=== PATIENT | male | born 1965 ===

== ENCOUNTER 2018-04-20 12:43 | Emergency (ER) | payer OTHER ==
[2018-04-20 13:05] VITALS: O2SAT 95
[2018-04-20] MEDS ORDERED: cefTRIAXone (Rocephin) 250 mg Inj IM STA (14:57)
[2018-04-20] MEDS ORDERED: Sodium Chloride 0.9% 1,000 ML IV ONE (15:24)
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
[2018-04-20] MEDS ORDERED: Sodium Chloride 0.9% 1,000 ML ONE (15:43)
[2018-04-20 16:10] LABS: BASO # 0.1 K/uL (0.0-0.2); BASO % 1.6 % (0.0-2.0); EOS # 0.1 K/uL (0.0-0.7); EOS % 1.2 % (0.0-4.0); HEMOGLOBIN 16.3 g/dL (12.0-18.0); LYMPH # 2.3 K/uL (1.0-4.3); LYMPH % 27.2 % (20.0-40.0); MEAN CELL VOLUME 87.9 fL (80.0-94.0); MEAN CORPUSCULAR HEMOGLOBIN 30.4 pg (27.0-31.0); MEAN CORPUSCULAR HGB CONC 34.5 g/dL (33.0-37.0); MEAN PLATELET VOLUME 8.5 fL (7.2-11.7); MONO # 0.5 K/uL (0.0-0.8); NEUT # 5.4 K/uL (1.8-7.0); NRBC % 0.3 % (0.0-2.0); RBC 5.36 Mil/uL (4.40-5.90); RED CELL DISTRIBUTION WIDTH 13.3 % (11.5-14.5); WHITE BLOOD COUNT 8.5 K/uL (4.8-10.8)
[2018-04-20 16:18] LABS: BLOOD UREA NITROGEN 23 mg/dL (9-20); CALCIUM 9.5 mg/dl (8.6-10.4); GFR NON-AFRICAN AMERICAN > 60
[2018-04-20 16:21] LABS: ALB/GLOB RATIO 1.1 (1.0-2.1); ALBUMIN 5.3 g/dL (3.5-5.0); ALT/SGPT 48 U/L (21-72); AST/SGOT 118 U/L (17-59)
--- NOTE | 2018-04-20 16:22 | RAD ---
Date of service: 04/20/2018 PROCEDURE: CHEST RADIOGRAPH, 1 VIEW HISTORY: chest pain COMPARISON: None available. FINDINGS: LUNGS: Clear. PLEURA: No pneumothorax or pleural fluid seen. CARDIOVASCULAR: Normal. OSSEOUS STRUCTURES: No significant abnormalities. VISUALIZED UPPER ABDOMEN: Normal. OTHER FINDINGS: None. IMPRESSION: No acute cardiopulmonary disease appreciated.
[2018-04-20 16:43] VITALS: BP 154/97; PULSE 112; RESP 20; TEMP 98.6
--- NOTE | 2018-04-21 13:18 | CARD ---
APPROVED REPORT Date of service: 04/20/2018 EKG Measurement Heart [id number] <Conclusion> Sinus tachycardia with premature supraventricular complexes Possible Left atrial enlargement Borderline ECG
== END 2018-04-20 16:53 | disposition home or self-care (01) ==
LOC: EDBD 12:43 → C.ER 12:43
DX: T76.21XA Adult sexual abuse, suspected, initial encounter (principal); I10 Essential (primary) hypertension; Z21 Asymptomatic human immunodeficiency virus [HIV] infection status
CPT/HCPCS: 71045; 80053; 84484; 85025; 93005; 96360; 96372; 99285; J0696; J7030